=== PATIENT | male | born 1990 | race African-American/Black ===

== ENCOUNTER 2022-06-27 14:59 | Emergency (ER) | payer OTHER ==
[~2022-06-27] VITALS: Ht 177.8 cm; Wt 68.0 kg
[2022-06-27] MEDS ORDERED: TETANUS AND DIPHTHERIA TOX/PF 0.5ML SYR (ADULT) IM ONE (16:15)
[2022-06-27] MEDS ORDERED: SODIUM CHLORIDE 0.9% 1,000 ML IV ONE (16:15)
[2022-06-27] MEDS ORDERED: TETANUS, DIPHTHERIA, PERTUSSIS VAC/PF 0.5ML (>10YR OLD) IM ONE (16:45)
[2022-06-27 17:04] LABS: HEMATOCRIT. 39.2 % (42.0-52.0); HEMOGLOBIN. 12.3 g/dL (14.0-18.0); MEAN CORPUSCULAR VOLUME 70.3 fL (80.0-94.0); MEAN PLATELET VOLUME 8.9 fl (7.4-10.4); PLATELET 363 x1000/uL (130-400); RED BLOOD CELL COUNT 5.58 mill/uL (4.7-6.1); RED CELL DISTRIBUTION WIDTH 15.9 % (11.6-14.6)
[2022-06-27 17:14] LABS: CHLORIDE 101 mEq/L (98-107)
[2022-06-27 17:20] LABS: PLATELET ESTIMATE NORMAL
[2022-06-27 17:24] LABS: ETHANOL BLOOD < 10 mg/dL
[2022-06-27 18:55] VITALS: BP 135/80
== END 2022-06-27 19:45 ==
LOC: ER 14:59
DX: F19.10 Other psychoactive substance abuse, uncomplicated (principal); D72.829 Elevated white blood cell count, unspecified; R79.89 Other specified abnormal findings of blood chemistry; F17.210 Nicotine dependence, cigarettes, uncomplicated; Z02.79 Encounter for issue of other medical certificate
CPT/HCPCS: 36415; 80053; 80320; 83690; 84484; 85025; 99283; J7030; 90714; G0480